=== PATIENT | female | born 1960 | race Caucasian/White ===

== ENCOUNTER 2017-05-27 17:59 | Emergency (ER) | payer OTHER ==
[~2017-05-27] VITALS: Ht 162.6 cm; Wt 48.5 kg
[~2017-05-27 17:59] MED LIST: AMOCLA875 PO; ASPI325 PO; Amoxicillin500 MG PO; BENTYL10 MG PO; BUDE6HFA INH; Bactrim Ds Tab1 EACH PO; CEFD300 PO; CEPH500 PO; CLIN300 PO; CYCL10; CYCL10 PO; DULO30 PO; DULO60; ESTMET; ESTRADIOL1 MG PO; Estradiol1 MG PO; FENO160 PO; GABA300 PO; HORIZANT600 MG PO; HYDACE5 PO; IBUP800 PO; Inderal40 MG; Inderal40 MG PO; KETO10 PO; LEVFLO500 PO; Lofibra160 MG PO; METCAR500 PO; METCAR750 PO; MULVITMIND PO; Mobic7.5 MG PO; NAPR500; NAPR500 PO; NAPR500EC PO; NAPR500ERA PO; NICO14TP TOP; Naprosyn500 MG PO; Norco 10-325 T1 EACH PO; Norco 5-325 Ta1 EACH PO; Norco 7.5-3251 EACH PO; OMEP20ER PO; ONDA4 PO; OXYACE5T PO; OXYC10ER PO; OXYC10TA19 PO; OXYC1TAB11 PO; OXYC5; Omeprazole Dr 40 Mg; Omeprazole20 M1 PO; PROM25; PROM25 PO; Percocet 10-321 EACH PO; Percocet 5-3251 EACH PO; Prednisone20 MG PO; Prilosec2.5 MG PO; Pyridium200 MG PO; RANI150; RANI150 PO; RXOXYACE PO; RXPHEN200 PO; RXTRAM50 PO; SPIRIVA RESPIMAT4 GM INH; TIZANIDINE HCL4 MG PO; TRAM50 PO; TRIM100 PO; Ultram50 MG PO; Zithromax250 MG PO; Zofran Odt4 MG SL; Zofran4 MG PO; [UNRECOGNIZED DRUG - OTHER] PO
[2017-05-27 19:57] LABS: Source, Urine Clean Catch
[2017-05-27 19:59] LABS: Appearance, Urine Clear (Clear); Blood, Urine 3+ (Neg); Color, Urine Yellow (P-Yellow); Glucose Qualitative, Urine Neg (Neg); Ketones, Urine 1+ (Neg); Leukocyte Esterase, Urine 1+ (Neg); Nitrite, Urine Neg (Neg); Protein, Urine 2+ (Neg); Specific Gravity, Urine 1.025 (1.003-1.022); Urobilinogen, Urine 1+ (Normal)
[2017-05-27 20:07] LABS: Bilirubin, Urine 1+ (Neg)
[2017-05-27 20:08] LABS: Mucus Light (0-Heavy)
[2017-05-27 20:09] LABS: Bacteria Rare /hpf; Calcium Oxalate Crystals Few /hpf; Squamous Epithelial Cells Rare /hpf (Few)
[2017-12-26] MEDS ORDERED: MORP15ER PO (08:39)
[2017-12-28] MEDS ORDERED: Percocet 5-3251 EACH PO (10:48)
[2018-02-18] MEDS ORDERED: Robaxin-750750 MG PO (18:39)
== END 2017-05-27 21:08 | disposition home or self-care (01) ==
LOC: ER 17:59
PROVIDERS: Physician Assistant
DX: R10.9 Unspecified abdominal pain (principal); E78.5 Hyperlipidemia, unspecified; J44.9 Chronic obstructive pulmonary disease, unspecified; F32.9 Major depressive disorder, single episode, unspecified; Z88.1 Allergy status to other antibiotic agents; Z88.8 Allergy status to other drugs, medicaments and biological substances; Z88.5 Allergy status to narcotic agent; Z79.899 Other long term (current) drug therapy; Z79.82 Long term (current) use of aspirin; F17.200 Nicotine dependence, unspecified, uncomplicated; Z87.442 Personal history of urinary calculi
CPT/HCPCS: 81001; 87086; 99283

== ENCOUNTER 2017-07-21 20:46 | Emergency (ER) | payer OTHER ==
[~2017-07-21] VITALS: Ht 160 cm; Wt 47.6 kg
[~2017-07-21 20:46] MED LIST changes: +OXYC5 PO
[2017-07-21] MEDS ORDERED: Levaquin500 MG PO (22:19)
[2017-07-21] MEDS ORDERED: Prednisone50 MG PO (22:19)
== END 2017-07-21 22:28 | disposition home or self-care (01) ==
LOC: ER 20:46
DX: J18.9 Pneumonia, unspecified organism (principal); Z88.1 Allergy status to other antibiotic agents; Z88.8 Allergy status to other drugs, medicaments and biological substances; Z88.5 Allergy status to narcotic agent; Z79.899 Other long term (current) drug therapy; Z79.82 Long term (current) use of aspirin; K21.9 Gastro-esophageal reflux disease without esophagitis; F41.9 Anxiety disorder, unspecified; I10 Essential (primary) hypertension; J44.9 Chronic obstructive pulmonary disease, unspecified; F17.200 Nicotine dependence, unspecified, uncomplicated
CPT/HCPCS: 71046; 94640; 99283

== ENCOUNTER 2017-09-02 23:08 | Emergency (ER) | payer OTHER ==
[~2017-09-02] VITALS: Ht 162.6 cm; Wt 46.7 kg
[~2017-09-02 23:08] MED LIST changes: +Levaquin500 MG PO; +Prednisone50 MG PO
[2017-09-03] MEDS ORDERED: Prednisone20 MG PO (00:41)
[2017-09-03] MEDS ORDERED: KETO10 PO (00:41)
[2017-09-03] MEDS ORDERED: Valium5 MG PO (00:41)
[2017-09-03] MEDS ORDERED: LIDO700A20 TOP (00:41)
== END 2017-09-03 01:13 | disposition home or self-care (01) ==
LOC: ER 23:08
DX: M54.6 Pain in thoracic spine (principal); Z88.1 Allergy status to other antibiotic agents; Z88.8 Allergy status to other drugs, medicaments and biological substances; Z88.5 Allergy status to narcotic agent; Z79.899 Other long term (current) drug therapy; Z79.82 Long term (current) use of aspirin; Z79.52 Long term (current) use of systemic steroids; I10 Essential (primary) hypertension; J44.9 Chronic obstructive pulmonary disease, unspecified; F17.210 Nicotine dependence, cigarettes, uncomplicated
CPT/HCPCS: 71046; 93005; 93010; 96372; 99283; J1885

== ENCOUNTER → 2018-01-06 | Outpatient (CLI) | payer OTHER ==
[~2018-01-06] MED LIST changes: +LIDO700A20 TOP; +MORP15ER PO; -OXYC5 PO; +Valium5 MG PO
== END ==
LOC: LAB 16:20 → LAB SHORT 16:20
DX: N10 Acute pyelonephritis (principal)
CPT/HCPCS: 87086

== ENCOUNTER 2019-01-19 10:50 | Day surgery (SDC) | payer OTHER ==
[~2019-01-19] VITALS: Ht 162.6 cm; Wt 39.4 kg
[~2019-01-19 10:50] MED LIST changes: +Robaxin-750750 MG PO
--- NOTE | 2019-01-19 11:31 | NUR ---
01/19/19 1131 Brandie Bates FIRST TWO IV ATTEMPTS IN RIGHT HAND AND FOREARM INFILTRATED. BOTH BY [facility].RCL. THIRD ATTEMPT IN RIGHT AC WAS SUCCESSFUL AND TOLERATED WELL. BY ORS.DLB.
[2019-01-19] MEDS ORDERED: Zofran8 MG PO (11:36)
== END 2019-01-19 13:33 | disposition home or self-care (01) ==
LOC: ORSCSDS 10:50
PROVIDERS: Internal Medicine Gastroenterology
PROC: 0DB68ZX Excision of Stomach, Via Natural or Artificial Opening Endoscopic, Diagnostic (ICD-10-PCS; principal; 2019-01-19 12:15)
PROC: 0DB98ZX Excision of Duodenum, Via Natural or Artificial Opening Endoscopic, Diagnostic (ICD-10-PCS; principal; 2019-01-19 12:15)
DX: R10.13 Epigastric pain (principal); K31.7 Polyp of stomach and duodenum; R11.2 Nausea with vomiting, unspecified; R63.4 Abnormal weight loss; J44.9 Chronic obstructive pulmonary disease, unspecified; F41.9 Anxiety disorder, unspecified; F17.210 Nicotine dependence, cigarettes, uncomplicated; Z79.899 Other long term (current) drug therapy
CPT/HCPCS: 88305; 88342; J2704; J7120

== ENCOUNTER 2019-02-12 15:08 | Inpatient (IN) | payer OTHER ==
[~2019-02-12] VITALS: Ht 162.6 cm; Wt 42.2 kg
[~2019-02-12 15:08] MED LIST changes: +Zofran8 MG PO
[2019-02-12 15:53] LABS: PCO2 Arterial 58.4 mmHg (35-45); PO2 Arterial 74.2 mmHg (80-100); pH Blood Arterial 7.27 (7.35-7.45)
[2019-02-12 15:55] LABS: BASOPHILS ABSOLUTE AUTO 0.08 K/mm3 (0.00-0.23); BASOPHILS PERCENT AUTO 1 % (0-2); EOSINOPHILS ABSOLUTE AUTO 0.03 K/mm3 (0.00-0.68); EOSINOPHILS PERCENT AUTO 0 % (0-6); IMMATURE GRAN ABSOLUTE AUTO 0.03 K/mm3 (0.00-0.10); IMMATURE GRAN PERCENT AUTO 0 % (0-1); LYMPHOCYTES ABSOLUTE AUTO 2.57 K/mm3 (0.84-5.20); LYMPHOCYTES PERCENT AUTO 20 % (21-46); MONOCYTES ABSOLUTE AUTO 1.36 K/mm3 (0.16-1.47); MONOCYTES PERCENT AUTO 11 % (4-13); Mean Corpuscular HGB 31.2 pg (26.0-34.0); Mean Corpuscular Volume 98 fL (80-100); NEUTROPHILS ABSOLUTE AUTO 8.61 K/mm3 (1.96-9.15); NEUTROPHILS PERCENT AUTO 68 % (41-73); Platelet Count 453 K/mm3 (150-400); RDW Coefficient Variation 12.9 % (11.7-14.2); RDW Standard Deviation 46.5 fL (35.1-46.3); Red Blood Cell Count 5.13 M/mm3 (3.80-5.20); White Blood Cell Count 12.68 K/mm3 (4.00-11.30)
[2019-02-12 16:13] LABS: Alanine Aminotransfer (ALT/SGP 22 U/L (12-78); Albumin, Blood 3.3 g/dL (3.4-5.0); Albumin/Globulin Ratio 0.7 (0.8-1.8); Alk Phos 96 U/L (50-136); Anion Gap 8 mmol/L (6-16); Aspartate Aminotrans (AST/SGOT 26 U/L (12-37); Bilirubin, Total 0.5 mg/dL (0.1-1.0); Blood Urea Nitrogen 24 mg/dL (8-24); Bun/Creatinine Ratio 30.7 (12.0-20.0); CO2, Blood 26 mmol/L (21-32); Calcium, Blood 9.1 mg/dL (8.5-10.1); Chloride, Blood 98 mmol/L (98-108); Creatinine, Blood 0.78 mg/dL (0.40-1.00); Globulin, Blood 4.6 g/dL (2.2-4.0); Glomerular Filtration Rate >60 (60-); Glucose, Blood 118 mg/dL (70-99); Sodium, Blood 132 mmol/L (136-145); Total Protein, Blood 7.9 g/dL (6.4-8.2); Troponin I 0.102 ng/mL (0.000-0.040)
[2019-02-12 16:18] LABS: Free Thyroxine 1.38 ng/dL (0.70-1.60)
[2019-02-12 16:21] LABS: Thyroid Stimulating Hormone 0.601 uIU/mL (0.360-4.800)
[2019-02-12] MEDS ORDERED: GABA300 PO ×2 (16:53)
[2019-02-12] MEDS ORDERED: ALBU90OI INH (16:55)
[2019-02-12] MEDS ORDERED: PANT20 PO (16:55)
[2019-02-12] MEDS ORDERED: OXYC10TA19 PO (16:55)
[2019-02-12] MEDS ORDERED: ALBU3IS INH (16:56)
[2019-02-12] MEDS ORDERED: MELO7.5 PO (16:56)
--- NOTE | 2019-02-12 18:37 | NUR ---
ADMIT PT ARRIVED TO ICU 4 AT 1818. PT ALERT, ON BIPAP, BREATHING EASILY. PT MOVED TO ICU BED. DR. BOSE AT BEDSIDE FOR CONSULT AND GAVE ORDERS TO HOLD LASIX AND METOPROLOL. PT ONLY HAS 22G IV CURRENTLY, HARPREET ESPINOSA ATTEMPTING POWERGLIDE. PT UPDATED ON PLAN OF CARE FOR THE NIGHT. GIVEN CALL LIGHT. WILL REPORT OFF TO TOP TRIMMER.
[2019-02-12 19:00] LABS: PCO2 Arterial 49.3 mmHg (35-45); PO2 Arterial 95.4 mmHg (80-100); pH Blood Arterial 7.34 (7.35-7.45)
[2019-02-12 20:33] LABS: Influenza A Negative (NEGATIVE); Influenza B Negative (NEGATIVE)
--- NOTE | 2019-02-12 22:07 | NUR ---
ASSUMPTION OF CARE: PT ALERT AND ORIENTED AND AWAKE IN ROOM. C/O BACK PAIN 9.5/10. PT ON BIPAP 12/10, FI02 30%. SP02 >90%. SBP STABLE IN LOW 100S. HR IN THE 60S. PT ABLE TO VOID. OFFERING BED SPEARS AT THIS TIME. 22G RAC INFUSING NS 100ML/HR. PG IN RALPH INFUSING WITH HEPARIN AT 13U. FAMILY AT BEDSIDE
[2019-02-13 03:36] LABS: BASOPHILS ABSOLUTE AUTO 0.01 K/mm3 (0.00-0.23); BASOPHILS PERCENT AUTO 0 % (0-2); EOSINOPHILS PERCENT AUTO 0 % (0-6); Hematocrit 36.6 % (33.0-51.0); Hemoglobin 11.8 g/dL (11.5-16.0); Mean Corpuscular HGB 30.6 pg (26.0-34.0); Mean Corpuscular HGB Conc 32.2 g/dL (31.5-36.5); Platelet Count 305 K/mm3 (150-400); RDW Coefficient Variation 12.9 % (11.7-14.2); RDW Standard Deviation 44.6 fL (35.1-46.3); Red Blood Cell Count 3.85 M/mm3 (3.80-5.20); White Blood Cell Count 5.77 K/mm3 (4.00-11.30)
[2019-02-13 03:38] LABS: IMMATURE GRAN ABSOLUTE AUTO 0.01 K/mm3 (0.00-0.10); IMMATURE GRAN PERCENT AUTO 0 % (0-1); LYMPHOCYTES ABSOLUTE AUTO 1.37 K/mm3 (0.84-5.20); LYMPHOCYTES PERCENT AUTO 24 % (21-46); MONOCYTES PERCENT AUTO 2 % (4-13); Mean Corpuscular Volume 95 fL (80-100); NEUTROPHILS ABSOLUTE AUTO 4.28 K/mm3 (1.96-9.15); NEUTROPHILS PERCENT AUTO 74 % (41-73)
[2019-02-13 03:57] LABS: Magnesium, Blood 1.2 mg/dL (1.6-2.4)
[2019-02-13 04:06] LABS: Alanine Aminotransfer (ALT/SGP 12 U/L (12-78); Albumin, Blood 2.1 g/dL (3.4-5.0); Albumin/Globulin Ratio 0.7 (0.8-1.8); Alk Phos 55 U/L (50-136); Anion Gap 7 mmol/L (6-16); Aspartate Aminotrans (AST/SGOT 19 U/L (12-37); Bilirubin, Total 0.2 mg/dL (0.1-1.0); Blood Urea Nitrogen 20 mg/dL (8-24); Bun/Creatinine Ratio 45.2 (12.0-20.0); CO2, Blood 25 mmol/L (21-32); Chloride, Blood 108 mmol/L (98-108); Creatinine, Blood 0.44 mg/dL (0.40-1.00); Globulin, Blood 2.9 g/dL (2.2-4.0); Glomerular Filtration Rate >60 (60-); Glucose, Blood 102 mg/dL (70-99); Potassium, Blood 3.7 mmol/L (3.5-5.5); Sodium, Blood 140 mmol/L (136-145)
[2019-02-13 05:29] LABS: PCO2 Arterial 52.8 mmHg (35-45); PO2 Arterial 85.7 mmHg (80-100); pH Blood Arterial 7.31 (7.35-7.45)
--- NOTE | 2019-02-13 05:39 | NUR ---
SHIFT SUMMARY: PT ALERT AND ORIENTED. FAMILY HAS BEEN AT BEDSIDE ALL SHIFT. LUNG SOUNDS ARE COURSE WITH WHEEZES. ON BIPAP 10/5, FI02 30%, AND SP02 >90%. IS ABLE TO TAKE SHORT BREAKS OFF BIPAP. IN SR, SBP STABLE IN THE 90S-100S, HR IN THE 60S. IS 1 PERSON ASSIST TO BEDSIDE COMMODE. 22G RAC INF WITH NS AT 100MLS/HR. POWERGLIDE TO RALPH INFUSING WITH HEPARIN AT 15U/KG/HR.
[2019-02-13 06:00] LABS: U Amphetamine Screen Not Detected; U Barbituate Screen Not Detected; U Benzodiazapine Screen Not Detected; U Buprenorphine Screen Not Detected; U Cannabinoids Screen Not Detected; U Cocaine Screen Not Detected; U Methadone Screen DETECTED; U Methamphetamine Screen Not Detected; U Opiates Screen DETECTED; U Oxycodone Screen Not Detected; U Phencyclidine Screen Not Detected; U Propoxyphene Screen Not Detected
--- NOTE | 2019-02-13 07:30 | NUR ---
ASSUMED CARE AT 0700. REPORT FROM CHERIE MULLINS. PT RESTING IN BED. RT AT BEDSIDE. BIPAP REMOVED, PLACED ON 4L O2 VIA NC. PT SPEAKING IN FULL SENTANCES. LUNGS COARSE THROUGHOUT c EXPIRATORY WHEEZES. PT P/W/D. PT REPORTS SOB IMPROVED, REPORTS SOB c EXERTION LAST NOC. HEPARIN INFUSING AT 15 UNITS/KG/HR THROUGHOUT POWERGLIDE TO RUE. 22G TO RAC. CALL LIGHT IN REACH. DR GAN IN TO SEE PT TODAY, AWAITING ECHO. WILL CONTINUE TO MONITOR.
--- NOTE | 2019-02-13 09:12 | NUR ---
Echocardiogram completed.
--- NOTE | 2019-02-13 18:10 | NUR ---
SHIFT SUMMARY PT TOLERATED BEING OFF BIPAP ALL SHIFT. O2 AT 2L VIA NC. O2 SATS MID 90'S. LUNGS REMAIN COARSE c EXPIRATORY WHEEZES. PT SPEAKING IN FULL SENTANCES. DENIES CHEST PAIN THIS SHIFT. REPORTS CHRONIC BACK PAIN. EDUCATED PT ON SPACING MEDS FOR BETTER PAIN RELIEF. PROVIDED HEATING PAD FOR COMFORT. PT UP TO BEDSIDE COMMODE c STAND BY ASSIST TODAY. MINIMAL DYSPNEA c EXERTION. VSS. HEPARIN CONTINUES TO INFUSE AT 17 UNITS/KG/HR ORDERED. ECHO COMPLETE TODAY. CALCIUM AND MAGNESIUM REPLACED THIS SHIFT. DIET PROGRESSED TO MECHANICAL SOFT. PT TOLERATED WELL. STATUS CHANGED TO PCU. REPORT TO ONCOMING NURSE.
--- NOTE | 2019-02-13 23:06 | NUR ---
ASSUME CARE ASSUMED CARE OF PATIENT AT ABOUT 1945. PATIENT IN BED, A&O. APPROPRIATE. SATS ABOVE 92% ON 2L NC. LUNG SOUNDS COARSE WITH EXPIRATORY WHEEZES AND CRACKLES AT THE BASES. PATIENT ABLE TO USE BEDSIDE COMMODE WITH MINIMAL ASSISTANCE. HEPARIN GTT CHANGED TO 19 UNITS AND 2000 UNIT BOLUS GIVEN PER RX ORDER. PATIENT COMPLAINED OF BACK PAIN, OXY, MORPHINE AND GABBAPENTIN GIVEN BEFORE BED. PATIENT SLEEPING COMFORTABLY. VSS. WILL CONTINUE TO MONITOR.
[2019-02-14 03:58] LABS: BASOPHILS ABSOLUTE AUTO 0.01 K/mm3 (0.00-0.23); BASOPHILS PERCENT AUTO 0 % (0-2); EOSINOPHILS PERCENT AUTO 0 % (0-6); Hematocrit 33.7 % (33.0-51.0); Hemoglobin 10.8 g/dL (11.5-16.0); IMMATURE GRAN ABSOLUTE AUTO 0.04 K/mm3 (0.00-0.10); IMMATURE GRAN PERCENT AUTO 0 % (0-1); LYMPHOCYTES ABSOLUTE AUTO 1.14 K/mm3 (0.84-5.20); LYMPHOCYTES PERCENT AUTO 10 % (21-46); MONOCYTES ABSOLUTE AUTO 0.45 K/mm3 (0.16-1.47); MONOCYTES PERCENT AUTO 4 % (4-13); Mean Corpuscular Volume 97 fL (80-100); NEUTROPHILS ABSOLUTE AUTO 9.32 K/mm3 (1.96-9.15); NEUTROPHILS PERCENT AUTO 85 % (41-73); Platelet Count 325 K/mm3 (150-400); RDW Standard Deviation 46.6 fL (35.1-46.3); Red Blood Cell Count 3.48 M/mm3 (3.80-5.20); White Blood Cell Count 10.96 K/mm3 (4.00-11.30)
[2019-02-14 04:19] LABS: Anion Gap 3 mmol/L (6-16); Blood Urea Nitrogen 20 mg/dL (8-24); Bun/Creatinine Ratio 40.8 (12.0-20.0); CO2, Blood 30 mmol/L (21-32); Chloride, Blood 106 mmol/L (98-108); Creatinine, Blood 0.49 mg/dL (0.40-1.00); Glomerular Filtration Rate >60 (60-); Glucose, Blood 133 mg/dL (70-99); Magnesium, Blood 1.7 mg/dL (1.6-2.4); Phosphorus, Blood 2.7 mg/dL (2.5-4.9); Potassium, Blood 4.7 mmol/L (3.5-5.5); Sodium, Blood 139 mmol/L (136-145); Troponin I <0.015 ng/mL (0.000-0.040)
[2019-02-14 05:06] LABS: PCO2 Arterial 54.8 mmHg (35-45); PO2 Arterial 100 mmHg (80-100); pH Blood Arterial 7.35 (7.35-7.45)
--- NOTE | 2019-02-14 06:03 | NUR ---
SHIFT SUMMARY PATIENT ON BIPAP WHILE ASLEEP. 12/17 30%. ABG DONE AT 0500, FI02 CHANGED TO 25%. HEPARIN GTT CHANGED TO 20 UNITS/KG/HR. VSS. NO OTHER CHANGES. WILL CONTINUE TO MONITOR UNITL REPORT HANDOFF GIVEN.
--- NOTE | 2019-02-14 07:50 | NUR ---
ASSUMED CARE AT 0700. REPORT FROM ADITHYA MULLINS. PT RESTING IN BED. WAKES c VERBAL STIMULI. PT REPORTS ADEQUATE REST LAST NOC. UP TO BEDSIDE COMMODE c STAND BY ASSISTANCE. PT DENIES SOB OR CP. PT ANXIOUS TO GO HOME. LUNGS IMPROVED, COARSE, DIMINISHED IN BASES. VSS. HEPARIN DRIP STOPPED THIS AM PER CARDIOLOGY. PT C/O CHRONIC LOW BACK PAIN. WILL MEDICATED ORDERED. WILL CONTINUE TO MONITOR.
--- NOTE | 2019-02-14 09:27 | NUR ---
DR REAL AT BEDSIDE FOR ASSESSMENT. PT PCU STATUS. PT TO WEAR BIPAP AT NIGHT AND PRN DURING DAY. O2 REMOVED AT THIS TIME. WILL MONITOR BIOX.
--- NOTE | 2019-02-14 14:20 | NUR ---
SHIFT SUMMARY PT MOVED TO PCU. REPORT TO ROSINA MULLINS. ALL BELONGINGS c PT. PT TITRATED OFF O2 THIS SHIFT. O2 SATS LOW 90'S WHEN PT SLEEPING, MID 90'S WHILE AWAKE. WILL CONTINUE BIPAP DURING NOC AND PRN PER DR REAL. HEPARIN AND IVF D/C'D. ENCOURAGED PO INTAKE. DIETARY INVOLVED. PT UP TO BSC COMMODE MULTIPLE TIMES c STAND BY ASSIST.
--- NOTE | 2019-02-14 15:32 | NUR ---
1445 PT ADMITTED TO PCU-5 VIA W/C. PT IS AMBULATORY IN ROOM ON RA. VS NOTED AND PT ADITHYA PAIN OR SOB AT THIS TIME. LUNGS ARE QUITE DEMINISHED LOWER 1/2 OF LUNG RAMOS BUT PT IS TOLERATING WELL. NO CHEST PAIN AND ONLY MINIMAL LOW BACK PAIN CURRENTLY.
--- NOTE | 2019-02-14 17:19 | NUR ---
PT CONT TO SLEEP AND NOT HAVING ANY DISTRESS OR CHANGE IN STATUS CURRENTLY.
--- NOTE | 2019-02-15 05:09 | NUR ---
informed hospitalist of high bp, not medicated due desire to continue pcp's planned procedures, continued to monitor and observed bp declined on own when no longer using bipap, denied symptoms, will continue to monitor and treat
--- NOTE | 2019-02-15 06:43 | NUR ---
pain controlled with medication, call light in reach, will continue to monitor and treat until share bsr with pt and day staff, family in room for most of shift, saline locked, bipap for majority of shift but removed and stayed above 90 on room air
--- NOTE | 2019-02-15 12:19 | NUR ---
PT'S FAMILY HAS REQUESTED THAT PT IS NOT DISTURBED STS "NO ONE WILL QUIT WAKING HER UP AND SHE HASN'T HAD ANY SLEEP, IT'S HARD TO REST WHEN SHE KEEPS BEING WOKEN UP" PT WITH CALL LIGHT, PCT MADE AWARE THAT PT WISHES TO NOT BE DISTRUBED
--- NOTE | 2019-02-15 18:44 | NUR ---
SHIFT NOTE PT HAS BEEN INDEPENDANT IN ROOM T/O THE DAY, REPORTS SOME SOB TODAY, DOES HAVE MILD USE OF ACCESSORY MUSCLES NOTED. PT A/O X4 ANSWERING QUESTIONS APPROPRIATELY IN FULL SENTENCES. LS CLEAR T/O BUT DECREASED.
[2019-02-16 04:10] LABS: Base Excess Venous 15.3 mmol/L; Bicarbonate Venous 35.6 mmol/L (24.0-30.0); PCO2 Venous 52.5 mmHg (38-42); PO2 Venous 23.8 mmHg (38-42); pH Blood Venous 7.48 (7.34-7.37)
[2019-02-16 04:37] LABS: BASOPHILS ABSOLUTE AUTO 0.01 K/mm3 (0.00-0.23); BASOPHILS PERCENT AUTO 0 % (0-2); EOSINOPHILS PERCENT AUTO 0 % (0-6); Hematocrit 39.5 % (33.0-51.0); Hemoglobin 12.9 g/dL (11.5-16.0); IMMATURE GRAN ABSOLUTE AUTO 0.08 K/mm3 (0.00-0.10); IMMATURE GRAN PERCENT AUTO 1 % (0-1); LYMPHOCYTES ABSOLUTE AUTO 0.77 K/mm3 (0.84-5.20); LYMPHOCYTES PERCENT AUTO 11 % (21-46); MONOCYTES PERCENT AUTO 7 % (4-13); Mean Corpuscular HGB 30.6 pg (26.0-34.0); Mean Corpuscular HGB Conc 32.7 g/dL (31.5-36.5); Mean Corpuscular Volume 94 fL (80-100); NEUTROPHILS ABSOLUTE AUTO 5.62 K/mm3 (1.96-9.15); NEUTROPHILS PERCENT AUTO 81 % (41-73); Platelet Count 372 K/mm3 (150-400); RDW Coefficient Variation 13.1 % (11.7-14.2); RDW Standard Deviation 44.3 fL (35.1-46.3); Red Blood Cell Count 4.22 M/mm3 (3.80-5.20); White Blood Cell Count 6.98 K/mm3 (4.00-11.30)
[2019-02-16 04:55] LABS: Alanine Aminotransfer (ALT/SGP 21 U/L (12-78); Albumin, Blood 3.4 g/dL (3.4-5.0); Albumin/Globulin Ratio 0.9 (0.8-1.8); Alk Phos 67 U/L (50-136); Anion Gap 5 mmol/L (6-16); Aspartate Aminotrans (AST/SGOT 17 U/L (12-37); Bilirubin, Total 0.4 mg/dL (0.1-1.0); Blood Urea Nitrogen 17 mg/dL (8-24); CO2, Blood 36 mmol/L (21-32); Calcium, Blood 9.3 mg/dL (8.5-10.1); Chloride, Blood 97 mmol/L (98-108); Creatinine, Blood 0.39 mg/dL (0.40-1.00); Globulin, Blood 3.9 g/dL (2.2-4.0); Glomerular Filtration Rate >60 (60-); Glucose, Blood 126 mg/dL (70-99); Magnesium, Blood 1.8 mg/dL (1.6-2.4); Phosphorus, Blood 2.8 mg/dL (2.5-4.9); Sodium, Blood 138 mmol/L (136-145); Total Protein, Blood 7.3 g/dL (6.4-8.2)
--- NOTE | 2019-02-16 05:33 | NUR ---
complained of cp, bp has been 160's, no complaint prior to pt being informed that pain medication was intended for relife of cp, checked vs, ekg, minimal change noted in vital signs
--- NOTE | 2019-02-16 06:29 | NUR ---
cp resolved with medication, continuing to monitor, pt wears bipap when encouraged too, back and neck pain remain, sustaining around 92 on roomair, saline locked, no complaint of sob
--- NOTE | 2019-02-16 16:54 | NUR ---
DR TO CALLED ABOUT THRUSH TO MOUTH, NEW ORDERS PLACED
--- NOTE | 2019-02-17 00:59 | NUR ---
PT DEMANDED TYLENOL DURING SLEEP STUDY, TO AVOID CONFRONTATION AND STRESS PROVIDED, PER REQUEST
[2019-02-17 06:42] LABS: BASOPHILS ABSOLUTE AUTO 0.02 K/mm3 (0.00-0.23); BASOPHILS PERCENT AUTO 0 % (0-2); EOSINOPHILS PERCENT AUTO 0 % (0-6); Hematocrit 43.2 % (33.0-51.0); Hemoglobin 13.9 g/dL (11.5-16.0); IMMATURE GRAN ABSOLUTE AUTO 0.08 K/mm3 (0.00-0.10); IMMATURE GRAN PERCENT AUTO 1 % (0-1); LYMPHOCYTES ABSOLUTE AUTO 0.82 K/mm3 (0.84-5.20); LYMPHOCYTES PERCENT AUTO 12 % (21-46); MONOCYTES ABSOLUTE AUTO 0.42 K/mm3 (0.16-1.47); MONOCYTES PERCENT AUTO 6 % (4-13); Mean Corpuscular HGB 30.2 pg (26.0-34.0); Mean Corpuscular HGB Conc 32.2 g/dL (31.5-36.5); Mean Corpuscular Volume 94 fL (80-100); NEUTROPHILS ABSOLUTE AUTO 5.74 K/mm3 (1.96-9.15); NEUTROPHILS PERCENT AUTO 81 % (41-73); Platelet Count 406 K/mm3 (150-400); RDW Coefficient Variation 12.9 % (11.7-14.2); RDW Standard Deviation 44.2 fL (35.1-46.3); White Blood Cell Count 7.08 K/mm3 (4.00-11.30)
--- NOTE | 2019-02-17 06:51 | NUR ---
a+o, able to make needs known, sleep study done but some of the time pt was awake and asking for pain medication, bp lower the previous two nights also bp also lower, call light in reach will continue to monitor and treat until share bsr with pt and day staff
[2019-02-17 06:56] LABS: Anion Gap 4 mmol/L (6-16); Blood Urea Nitrogen 25 mg/dL (8-24); Bun/Creatinine Ratio 56.3 (12.0-20.0); CO2, Blood 34 mmol/L (21-32); Calcium, Blood 9.1 mg/dL (8.5-10.1); Chloride, Blood 101 mmol/L (98-108); Creatinine, Blood 0.44 mg/dL (0.40-1.00); Glomerular Filtration Rate >60 (60-); Glucose, Blood 120 mg/dL (70-99); Potassium, Blood 3.7 mmol/L (3.5-5.5); Sodium, Blood 139 mmol/L (136-145)
[2019-02-17] MEDS ORDERED: ASPI81CH PO (14:49)
[2019-02-17] MEDS ORDERED: ATEN25 PO (14:50)
[2019-02-17] MEDS ORDERED: AMLO5 PO (14:50)
[2019-02-17] MEDS ORDERED: ATOR40TA PO (14:51)
[2019-02-17] MEDS ORDERED: CLOP75 PO (14:52)
[2019-02-17] MEDS ORDERED: CLOT10 SS (14:52)
[2019-02-17] MEDS ORDERED: Culturelle1 CAP PO (14:53)
[2019-02-17] MEDS ORDERED: CEFU500T30 PO (14:54)
[2019-02-17] MEDS ORDERED: Prednisone10 MG PO (14:57)
--- NOTE | 2019-02-17 15:37 | NUR ---
DISCHARGE PRESTON CAME AND SET PT UP WITH TRAVEL O2. PT MEDS WERE FAXED TO [facility] PER PT REQUEST. DISCHARGE INSRUCTIONS GONE OVER WITH PT AND FAMILY, ALL QUESTIONS ANSWERED. BELONGINGS GATHERED AND SENT WITH PT. MIDLINE WAS DISCONTINUED AND CATHETER WAS INTACT, PRESSURE DRESSING APPLIED. PT WAS ESCORTED OU VIA WHEELCHAIR ON 2LNC BY SOLE, PCT AND FAMILY.
== END 2019-02-17 15:43 | disposition home health service (06) | DRG 193 ==
LOC: ER 15:08 → ICUE 17:45 → ICUW 17:45 → ICUE 18:08 → PCU 02-14 14:39
PROVIDERS: Hospitalist; Internal Medicine Critical Care Medicine; Internal Medicine Pulmonary Disease; Physician Assistant; ADMIT Internal Medicine Gastroenterology
PROC: 5A09357 Assistance with Respiratory Ventilation, Less than 24 Consecutive Hours, Continuous Positive Airway Pressure (ICD-10-PCS; principal; 2019-02-12)
DX: J14 Pneumonia due to Hemophilus influenzae (principal); I21.A1 Myocardial infarction type 2; J96.21 Acute and chronic respiratory failure with hypoxia; J44.1 Chronic obstructive pulmonary disease with (acute) exacerbation; E46 Unspecified protein-calorie malnutrition; E87.1 Hypo-osmolality and hyponatremia; J44.0 Chronic obstructive pulmonary disease with (acute) lower respiratory infection; D62 Acute posthemorrhagic anemia; B37.0 Candidal stomatitis; F32.9 Major depressive disorder, single episode, unspecified; G89.4 Chronic pain syndrome; F17.210 Nicotine dependence, cigarettes, uncomplicated; E78.5 Hyperlipidemia, unspecified; E86.0 Dehydration; I86.4 Gastric varices
CPT/HCPCS: 36415; 36600; 71045; 71046; 80048; 80053; 82803; 83605; 83690; 83735; 83880; 84100; 84439; 84443; 84484; 85025; 85379; 85730; 87070; 87077; 87185; 87205; 87804; 90686; 93005; 93010; 93306; 94640; 94660; 94664; 94667; 94760; 94762; 96361; 96365; 96375; 97110; 97116; 97162; 97165; 97535; 98960; 99285-25; 99407; A9270; C1751; G0008; J0610; J0696; J1644; J1650; J1940; J2270; J2920; J2930; J3010; J3475; J7030

== ENCOUNTER 2019-03-02 16:32 | Emergency (ER) | payer OTHER ==
[~2019-03-02] VITALS: Ht 162.6 cm; Wt 35.4 kg
[~2019-03-02 16:32] MED LIST changes: +ALBU3IS INH; +ALBU90OI INH; +AMLO5 PO; +ASPI81CH PO; +ATEN25 PO; +ATOR40TA PO; +CEFU500T30 PO; +CLOP75 PO; +CLOT10 SS; +Culturelle1 CAP PO; +MELO7.5 PO; +PANT20 PO; +Prednisone10 MG PO
[2019-03-02 17:00] LABS: BASOPHILS ABSOLUTE AUTO 0.02 K/mm3 (0.00-0.23); BASOPHILS PERCENT AUTO 0 % (0-2); EOSINOPHILS ABSOLUTE AUTO 0.28 K/mm3 (0.00-0.68); EOSINOPHILS PERCENT AUTO 2 % (0-6); Hematocrit 45.1 % (33.0-51.0); Hemoglobin 14.8 g/dL (11.5-16.0); IMMATURE GRAN ABSOLUTE AUTO 0.08 K/mm3 (0.00-0.10); IMMATURE GRAN PERCENT AUTO 0 % (0-1); LYMPHOCYTES ABSOLUTE AUTO 3.66 K/mm3 (0.84-5.20); LYMPHOCYTES PERCENT AUTO 19 % (21-46); MONOCYTES ABSOLUTE AUTO 1.34 K/mm3 (0.16-1.47); MONOCYTES PERCENT AUTO 7 % (4-13); Mean Corpuscular HGB 30.9 pg (26.0-34.0); Mean Corpuscular HGB Conc 32.8 g/dL (31.5-36.5); Mean Corpuscular Volume 94 fL (80-100); Mean Platelet Volume 8.7 fL (9.1-12.4); NEUTROPHILS ABSOLUTE AUTO 13.47 K/mm3 (1.96-9.15); NEUTROPHILS PERCENT AUTO 72 % (41-73); Platelet Count 391 K/mm3 (150-400); RDW Standard Deviation 45.4 fL (35.1-46.3); Red Blood Cell Count 4.79 M/mm3 (3.80-5.20); White Blood Cell Count 18.85 K/mm3 (4.00-11.30)
[2019-03-02 17:21] LABS: Alanine Aminotransfer (ALT/SGP 26 U/L (12-78); Albumin, Blood 3.4 g/dL (3.4-5.0); Alk Phos 64 U/L (50-136); Anion Gap 4 mmol/L (6-16); Aspartate Aminotrans (AST/SGOT 16 U/L (12-37); Bilirubin, Total 0.4 mg/dL (0.1-1.0); Blood Urea Nitrogen 16 mg/dL (8-24); Bun/Creatinine Ratio 28.3 (12.0-20.0); CO2, Blood 32 mmol/L (21-32); Calcium, Blood 8.8 mg/dL (8.5-10.1); Chloride, Blood 101 mmol/L (98-108); Creatinine, Blood 0.57 mg/dL (0.40-1.00); Globulin, Blood 3.4 g/dL (2.2-4.0); Glomerular Filtration Rate >60 (60-); Glucose, Blood 86 mg/dL (70-99); Potassium, Blood 3.5 mmol/L (3.5-5.5); Sodium, Blood 137 mmol/L (136-145); Total Protein, Blood 6.8 g/dL (6.4-8.2); Troponin I <0.015 ng/mL (0.000-0.040)
[2019-03-02] MEDS ORDERED: Pepcid20 MG PO (18:40)
== END 2019-03-02 19:13 | disposition home or self-care (01) ==
LOC: ER 16:32
PROVIDERS: Physician Assistant
DX: K21.0 Gastro-esophageal reflux disease with esophagitis (principal); J44.9 Chronic obstructive pulmonary disease, unspecified; I11.0 Hypertensive heart disease with heart failure; I50.9 Heart failure, unspecified; F41.9 Anxiety disorder, unspecified; F17.210 Nicotine dependence, cigarettes, uncomplicated; Z79.899 Other long term (current) drug therapy
CPT/HCPCS: 36415; 71046; 80053; 84484; 85025; 93005; 93010; 94640; 99285-25

== ENCOUNTER 2019-03-11 19:31 | Emergency (ER) | payer OTHER ==
[~2019-03-11] VITALS: Ht 162.6 cm; Wt 35.4 kg
[~2019-03-11 19:31] MED LIST changes: +Pepcid20 MG PO
[2019-03-11 19:59] LABS: BASOPHILS PERCENT AUTO 1 % (0-2); EOSINOPHILS ABSOLUTE AUTO 0.22 K/mm3 (0.00-0.68); EOSINOPHILS PERCENT AUTO 1 % (0-6); Hemoglobin 14.5 g/dL (11.5-16.0); IMMATURE GRAN ABSOLUTE AUTO 0.12 K/mm3 (0.00-0.10); IMMATURE GRAN PERCENT AUTO 1 % (0-1); LYMPHOCYTES ABSOLUTE AUTO 3.18 K/mm3 (0.84-5.20); LYMPHOCYTES PERCENT AUTO 18 % (21-46); MONOCYTES ABSOLUTE AUTO 1.19 K/mm3 (0.16-1.47); MONOCYTES PERCENT AUTO 7 % (4-13); Mean Corpuscular HGB 30.3 pg (26.0-34.0); Mean Corpuscular HGB Conc 31.5 g/dL (31.5-36.5); Mean Corpuscular Volume 96 fL (80-100); Mean Platelet Volume 8.7 fL (9.1-12.4); NEUTROPHILS ABSOLUTE AUTO 12.95 K/mm3 (1.96-9.15); NEUTROPHILS PERCENT AUTO 73 % (41-73); Platelet Count 488 K/mm3 (150-400); RDW Coefficient Variation 12.8 % (11.7-14.2); Red Blood Cell Count 4.79 M/mm3 (3.80-5.20); White Blood Cell Count 17.76 K/mm3 (4.00-11.30)
[2019-03-11 20:18] LABS: Alanine Aminotransfer (ALT/SGP 30 U/L (12-78); Albumin, Blood 3.5 g/dL (3.4-5.0); Albumin/Globulin Ratio 0.9 (0.8-1.8); Alk Phos 79 U/L (50-136); Anion Gap 4 mmol/L (6-16); Aspartate Aminotrans (AST/SGOT 23 U/L (12-37); Bilirubin, Total 0.4 mg/dL (0.1-1.0); Blood Urea Nitrogen 30 mg/dL (8-24); Bun/Creatinine Ratio 43.7 (12.0-20.0); CO2, Blood 31 mmol/L (21-32); Calcium, Blood 8.8 mg/dL (8.5-10.1); Chloride, Blood 103 mmol/L (98-108); Creatinine, Blood 0.69 mg/dL (0.40-1.00); Glomerular Filtration Rate >60 (60-); Glucose, Blood 122 mg/dL (70-99); Potassium, Blood 4.5 mmol/L (3.5-5.5); Sodium, Blood 138 mmol/L (136-145); Total Protein, Blood 7.5 g/dL (6.4-8.2)
[2019-03-11 20:49] LABS: Troponin I <0.015 ng/mL (0.000-0.040)
[2019-03-11 21:44] LABS: Source, Urine Clean Catch
[2019-03-11 21:46] LABS: Blood, Urine 2+ (Neg); Glucose Qualitative, Urine Neg (Neg); Ketones, Urine 1+ (Neg); Leukocyte Esterase, Urine 2+ (Neg); Nitrite, Urine Neg (Neg); Protein, Urine 2+ (Neg); Specific Gravity, Urine 1.025 (1.003-1.022); Urobilinogen, Urine 1+ (Normal)
[2019-03-11 21:52] LABS: Appearance, Urine Hazy (Clear); Bilirubin, Urine 1+ (Neg); Color, Urine Amber (P-Yellow)
[2019-03-11 21:54] LABS: Amorphous Light (0-Heavy); Bacteria Few /hpf; Hyaline Casts 50-100 /lpf (0-2); Mucus Light (0-Heavy); Red Blood Cells, Urine Rare /hpf (0-2); Squamous Epithelial Cells Few /hpf (Few)
[2019-03-11] MEDS ORDERED: CEFD300 PO (22:15)
== END 2019-03-11 23:01 | disposition home or self-care (01) ==
LOC: ER 19:31
PROVIDERS: Emergency Medicine
DX: M54.5 Low back pain (principal); G89.29 Other chronic pain; R82.81 Pyuria; Z88.1 Allergy status to other antibiotic agents; Z88.8 Allergy status to other drugs, medicaments and biological substances; Z88.5 Allergy status to narcotic agent; Z79.899 Other long term (current) drug therapy; Z79.82 Long term (current) use of aspirin; Z79.52 Long term (current) use of systemic steroids; K21.9 Gastro-esophageal reflux disease without esophagitis; I10 Essential (primary) hypertension; J44.9 Chronic obstructive pulmonary disease, unspecified; F41.9 Anxiety disorder, unspecified; F17.200 Nicotine dependence, unspecified, uncomplicated
CPT/HCPCS: 36415; 71046; 80053; 81001; 84484; 85025; 87086; 93005; 93010; 96365; 96375; 99284-25; J0696; J1170

== ENCOUNTER 2019-12-23 17:19 | Inpatient (IN) | payer MEDICARE, OTHER ==
[~2019-12-23] VITALS: Ht 157.5 cm; Wt 36.9 kg
[~2019-12-23 17:19] MED LIST changes: +COMPAZINE10 MG PO
[2019-12-23 17:51] LABS: PCO2 Arterial 59.7 mmHg (35-45); PO2 Arterial 135 mmHg (80-100)
[2019-12-23 18:12] LABS: BASOPHILS ABSOLUTE AUTO 0.07 K/mm3 (0.00-0.23); BASOPHILS PERCENT AUTO 1 % (0-2); EOSINOPHILS ABSOLUTE AUTO 0.15 K/mm3 (0.00-0.68); EOSINOPHILS PERCENT AUTO 2 % (0-6); Hematocrit 42.7 % (33.0-51.0); Hemoglobin 12.9 g/dL (11.5-16.0); IMMATURE GRAN ABSOLUTE AUTO 0.05 K/mm3 (0.00-0.10); IMMATURE GRAN PERCENT AUTO 1 % (0-1); LYMPHOCYTES ABSOLUTE AUTO 4.79 K/mm3 (0.84-5.20); LYMPHOCYTES PERCENT AUTO 52 % (21-46); MONOCYTES PERCENT AUTO 7 % (4-13); Mean Corpuscular HGB Conc 30.2 g/dL (31.5-36.5); Mean Corpuscular Volume 99 fL (80-100); Mean Platelet Volume 9.2 fL (9.1-12.4); NEUTROPHILS ABSOLUTE AUTO 3.61 K/mm3 (1.96-9.15); NEUTROPHILS PERCENT AUTO 39 % (41-73); Platelet Count 342 K/mm3 (150-400); RDW Coefficient Variation 12.1 % (11.7-14.2); RDW Standard Deviation 44.4 fL (35.1-46.3); White Blood Cell Count 9.27 K/mm3 (4.00-11.30)
[2019-12-23 18:29] LABS: Alanine Aminotransfer (ALT/SGP 31 U/L (12-78); Albumin, Blood 3.3 g/dL (3.4-5.0); Alk Phos 54 U/L (50-136); Anion Gap 12 mmol/L (6-16); Aspartate Aminotrans (AST/SGOT 59 U/L (12-37); Bilirubin, Total 0.4 mg/dL (0.1-1.0); Blood Urea Nitrogen 17 mg/dL (8-24); Bun/Creatinine Ratio 26.1 (12.0-20.0); CO2, Blood 22 mmol/L (21-32); CPK Creatine Kinase 157 U/L (26-193); Calcium, Blood 8.7 mg/dL (8.5-10.1); Chloride, Blood 108 mmol/L (98-108); Creatine Kinase MB 4.4 ng/mL (0.0-3.6); Creatine Kinase MB Index 2.8 (0.0-4.0); Creatinine, Blood 0.65 mg/dL (0.40-1.00); Globulin, Blood 3.2 g/dL (2.2-4.0); Glomerular Filtration Rate >60 (60-); Glucose, Blood 102 mg/dL (70-99); Potassium, Blood 4.2 mmol/L (3.5-5.5); Sodium, Blood 142 mmol/L (136-145); Total Protein, Blood 6.5 g/dL (6.4-8.2)
[2019-12-23 18:35] LABS: International Normalized Ratio 1.05; Prothrombin Time Results 11.2 Sec (9.7-11.5)
[2019-12-23] MEDS ORDERED: FLUT.05NI (18:58)
[2019-12-23 20:15] LABS: Source, Urine Catheter
[2019-12-23 20:19] LABS: Appearance, Urine Clear (Clear); Bilirubin, Urine Neg (Neg); Blood, Urine 5+ (Neg); Color, Urine Yellow (P-Yellow); Glucose Qualitative, Urine Neg (Neg); Ketones, Urine Neg (Neg); Leukocyte Esterase, Urine Neg (Neg); Nitrite, Urine Neg (Neg); Protein, Urine 3+ (Neg); Specific Gravity, Urine 1.025 (1.003-1.022); Urobilinogen, Urine NORM (Normal)
[2019-12-23 20:27] LABS: Bacteria Few /hpf; Granular Casts 0-2 /lpf (0); Squamous Epithelial Cells Few /hpf (Few)
[2019-12-23 21:29] LABS: PCO2 Arterial 51.5 mmHg (35-45); PO2 Arterial 78.2 mmHg (80-100); pH Blood Arterial 7.29 (7.35-7.45)
--- NOTE | 2019-12-24 01:55 | NUR ---
CARE ASSUMED 2104 PT ARRIVED FROM ED VIA GURNEY ACCOMPANIED BY ED RN'S. PT INTUBATED AND SEDATED. PROPOFOL AT 45 MCG'S (INFUSING IN 18 G RIGHT AC) AND NS @ RATE OF 100 ML/HR (20 G LEFT AC). AC 24/300/5/30%, SPO2 97-100%. TEMP JANSEN IN PLACE, DARK YELLOW CLOUDY URINE, TEMP OF 97.4. OG TUBE IN PLACE WITH GREEN AND MYRICK COLORED DISCHARGE. PT COOL TO TOUCH, BILATERAL KNEES MOTTLED. PT OPEN EYES DURING ORAL CARE AND GRIMACES FREQUENTLY, TREATED PER EMAR. PT UNABLE TO FOLLOW COMMANDS. PULSES STRONG. DR. BOSE IN TO SEE PT ALONG WTIH PTS [id number]. VENT SETTINGS CHANGED TO AC 26/350/08/04. DR. BOSE ASKED FOR NS FLUIDS TO BE CHANGED TO RATE OF 75 ML/HR. PTS TEMP INCREASING SLOWLY, BLANKETS REMOVED, ROOM TEMP DECREASED, AND FAN ON PTS FACE.
[2019-12-24 03:14] LABS: Adenovirus Not Detected (NOT DETECT); Bordetella pertussis Not Detected (NOT DETECT); Chlamydophila pneumoniae Not Detected (NOT DETECT); Coronavirus 229E Not Detected (NOT DETECT); Coronavirus HKU1 Not Detected (NOT DETECT); Coronavirus NL63 Not Detected (NOT DETECT); Coronavirus OC43 Not Detected (NOT DETECT); Human Metapneumovirus Not Detected (NOT DETECT); Human Rhinovirus/Enterovirus Not Detected (NOT DETECT); Influenza A/2009-H1 Not Detected (NOT DETECT); Influenza A/H1 Not Detected (NOT DETECT); Influenza A/H3 Not Detected (NOT DETECT); Influenza B Not Detected (NOT DETECT); Mycoplasma pneumoniae Not Detected (NOT DETECT); Parainfluenza Virus 1 Not Detected (NOT DETECT); Parainfluenza Virus 2 Not Detected (NOT DETECT); Parainfluenza Virus 3 Not Detected (NOT DETECT); Parainfluenza Virus 4 Not Detected (NOT DETECT); Respiratory Syncytial Virus Not Detected (NOT DETECT); SARS-Cov-2 (COVID-19), BioFire Not Detected (NOT DETECT)
[2019-12-24 05:02] LABS: BASOPHILS ABSOLUTE AUTO 0.02 K/mm3 (0.00-0.23); BASOPHILS PERCENT AUTO 0 % (0-2); EOSINOPHILS ABSOLUTE AUTO 0.01 K/mm3 (0.00-0.68); EOSINOPHILS PERCENT AUTO 0 % (0-6); Hematocrit 40.9 % (33.0-51.0); Hemoglobin 13.3 g/dL (11.5-16.0); IMMATURE GRAN ABSOLUTE AUTO 0.06 K/mm3 (0.00-0.10); IMMATURE GRAN PERCENT AUTO 1 % (0-1); LYMPHOCYTES ABSOLUTE AUTO 1.52 K/mm3 (0.84-5.20); LYMPHOCYTES PERCENT AUTO 12 % (21-46); MONOCYTES ABSOLUTE AUTO 0.13 K/mm3 (0.16-1.47); MONOCYTES PERCENT AUTO 1 % (4-13); Mean Corpuscular HGB 30.4 pg (26.0-34.0); Mean Corpuscular HGB Conc 32.5 g/dL (31.5-36.5); Mean Platelet Volume 9.2 fL (9.1-12.4); NEUTROPHILS ABSOLUTE AUTO 11.14 K/mm3 (1.96-9.15); NEUTROPHILS PERCENT AUTO 86 % (41-73); Platelet Count 338 K/mm3 (150-400); RDW Coefficient Variation 12.1 % (11.7-14.2); Red Blood Cell Count 4.37 M/mm3 (3.80-5.20); White Blood Cell Count 12.88 K/mm3 (4.00-11.30)
[2019-12-24 05:03] LABS: Mean Corpuscular Volume 94 fL (80-100)
[2019-12-24 05:09] LABS: PCO2 Arterial 34.5 mmHg (35-45); PO2 Arterial 67.3 mmHg (80-100); pH Blood Arterial 7.43 (7.35-7.45)
[2019-12-24 05:21] LABS: Alanine Aminotransfer (ALT/SGP 40 U/L (12-78); Albumin, Blood 3.5 g/dL (3.4-5.0); Albumin/Globulin Ratio 1.3 (0.8-1.8); Alk Phos 48 U/L (50-136); Anion Gap 9 mmol/L (6-16); Aspartate Aminotrans (AST/SGOT 67 U/L (12-37); Bilirubin, Total 0.5 mg/dL (0.1-1.0); Blood Urea Nitrogen 21 mg/dL (8-24); Bun/Creatinine Ratio 47.7 (12.0-20.0); CO2, Blood 22 mmol/L (21-32); Calcium, Blood 8.5 mg/dL (8.5-10.1); Chloride, Blood 107 mmol/L (98-108); Creatinine, Blood 0.44 mg/dL (0.40-1.00); Globulin, Blood 2.7 g/dL (2.2-4.0); Glomerular Filtration Rate >60 (60-); Glucose, Blood 116 mg/dL (70-99); Magnesium, Blood 1.7 mg/dL (1.6-2.4); Potassium, Blood 3.6 mmol/L (3.5-5.5); Sodium, Blood 138 mmol/L (136-145); Total Protein, Blood 6.2 g/dL (6.4-8.2)
--- NOTE | 2019-12-24 07:11 | NUR ---
SHIFT SUMMARY PT CONTINUES TO BE INTUBATED AND SEDATED. PROPOFOL AT 45 MCG/KG/MIN. VENT SETTINGS UNCHANGED. PT HAD EPISODE OF HYPERTENSION DURING 0400 ASSESSMENT AND DURING CHEST XRAY. PT GIVEN PROPANOLOL EARLY TO MANAGE ALONG WITH FENTANYL, SEE EMAR. GOOD EFFECT WITH BP AFTER MEDICATED WITH PAIN MEDICATION AND PROPANOLOL, SEE FLWO SHEET. PT RESPONDS TO VERBAL STIMULI, ABLE TO TRACK WITH HER EYES, AND FOLLOW COMMANDS. REORIENTED TO PLACE AND EVENT. PT DEINES PN. PT ABLE TO MOVE ARISTEO EXTREMS. PT SENSITIVE TO ANY NOXIOUS STIMULI. PTS TEMP REMAINS ELEVATION, 99.1, FAN REMAINS ON PT. WILL REPORT TO ONCOMING SHIFT. VSS. SPO REMAINED > 97%. LLL WITH RUB AND WHEEZES NOTED.
--- NOTE | 2019-12-24 08:28 | NUR ---
ASSUMED CARE OF PT AT 0700. REPORT FROM FIFI/GRADY MULLINS. PT INTUBATED AND SEDATED. VENT SETTINGS AC 26/350/5/25%. PROPOFOL GTT AT 55 MCG/KG/MIN. PT VERY SENSITIVE TO ANY NOXIOUS STIMULI. PT PULLS ON RESTRAINTS, COUGHS, GAGS ON TUBE. DIFFICULT TO REDIRECT. MEDICATED c ATIVAN AND FENTANYL PER EMAR. OGT TO LIS, GREEN BILE OUT. PT CACHETIC. ABD FLAT, NON TENDER. HYPOACTIVE BT. JANSEN IN PLACE, PATENT, DRAINING CLOUDY YELLOW URINE TO GRAVITY. HTN NOTED. DAUGHTER, CHRIS AT BEDSIDE. PALLATIVE CARE NOTIFIED. DAUGHTER REQUESTING TO ADDRESS CODE STATUS AND EXPLORE HOSPICE. WILL CONTINUE TO MONITOR.
--- NOTE | 2019-12-24 09:06 | NUR ---
Initial palliative care consul: Sheila is a 59 year old pt with a history of severd COPD, HTN, IBS, DE, anxiety. She was admitted with respiratory failure on 12/23/19. She is currently in ICU 6 and is intubated. She has a history of multiple COPD exacerbations. Requested by SECRETARY OFFICE CLERK to come visit with pt's family. Dtr Romelia is at the bedside. Romelia reports that she and her siblings (Tri & Paddy and sister in law Sarah) all agree that they would like to focus on comfort for their mom. Romelia states that she is her mom's caregiver and that she has watched her mom suffer and decline significantly since her pneumonia hospitalization in 2018. Romelia reports her mom's quality of life is poor. Her appetite is poor and she vomits frequently. She has lost weight and at times incontinent. She is unable to move around due to her chronic pain and SOB. She spends a large amount of time in her bed which is uncomfortable for her. Romelia reports her mom has mentioned in the past that she doesn't want to be on any fdc life support. Discussed options of continued treatments, code status and hospice and comfort care. Romelia states she and her siblings goal is to get Sheila home with hospice services so she can be comfortable and be home with her family. Romelia would like to change Sheila's code status to DNR but is ok with leaving her on the vent for a short time. Romelia does not want her to be re-intubated. Romelia is open to beginning comfort care in the hospital setting. Romelia would like a hospice referral placed for her mom, she doesn't have a preference of which hospice agency, and is open to go with whoever can see her the soonest for an intake. PPS 40% KPS 30% Multiple COPD exacerbations, wt loss, symptoms at rest with a large amount of time spent in bed. Sheila would be appropriate for hospice services based on her lung disease. Spoke with Dr. Sheppard, updated her on conversation with Romelia POC requested. Orders obtained for DNR. Dr. Sheppard will evaluate Sheila this morning. Nursing updated. Romelia provided with a hospice brochure and information on comfort care.
--- NOTE | 2019-12-24 17:38 | NUR ---
SHIFT SUMMARY PT REMAINS INTUBATED AND SEDATED. VENT SETTINGS AC 26/350/5/25%, PROPOFOL GTT AT 55 MCG/KG/MIN. PT RESPONSIVE TO NOXIOUS STIMULI. COUGH, GAG REFLEX. MAEW. LUNGS COARSE THROUGHOUT. TUBE FEEDS STARTED THIS SHIFT, VHP AT 10 ML/HR, GOAL 20 ML/HR, c 30 ML FLUSHES q4 HR. RESIDUALS 70 ML THIS AFTERNOON. 350 ML URINARY OUTPUT THIS SHIFT. 1 BM. CODE STATUS CHANGED TO DNR THIS SHIFT. PLAN FOR POSSIBLE EXTUBATION AND MOVE TO COMFORT CARE TOMORROW. HTN NOTED THIS SHIFT. HOME MEDS ORDERED, LABETALOL X 1 GIVEN c ADEQUATE RESULTS. WILL CONTINUE TO MONITOR UNTIL REPORT TO ONCOMING NURSE.
--- NOTE | 2019-12-24 19:24 | NUR ---
ASSUMED PT CARE. PT ET TO VENT, AC 26, TV 350, FIO2 25%, PEEP 5. LUNG SOUNDS COARSE WITH SOME CRACKLES TO RIGHT BASE. PT. SEDATED ON PROPOFOL @55 MCG. CALM AND SEDATED AT THIS TIME. TUBE FEEDING INFUSING AT 10CC/HR. BOWEL TONES ACTIVE. JANSEN CATH INTACT DRAINING CLEAR YELLOW URINE. PT'S DAUGHTER CHRIS AT BEDSIDE DURING SHIFT REPORT.
--- NOTE | 2019-12-24 20:00 | NUR ---
PT VERY RESTLESS AND TENSE AFTER REPOSITIONING. PT GIVEN ATIVAN FOR ANXIETY AND COMFORT.
[2019-12-25 04:40] LABS: Anion Gap 8 mmol/L (6-16); Blood Urea Nitrogen 21 mg/dL (8-24); Bun/Creatinine Ratio 47.4 (12.0-20.0); CO2, Blood 25 mmol/L (21-32); Calcium, Blood 8.5 mg/dL (8.5-10.1); Chloride, Blood 104 mmol/L (98-108); Creatinine, Blood 0.44 mg/dL (0.40-1.00); Glomerular Filtration Rate >60 (60-); Glucose, Blood 140 mg/dL (70-99); Magnesium, Blood 1.7 mg/dL (1.6-2.4); Phosphorus, Blood 2.9 mg/dL (2.5-4.9); Potassium, Blood 3.7 mmol/L (3.5-5.5); Sodium, Blood 137 mmol/L (136-145)
--- NOTE | 2019-12-25 05:46 | NUR ---
SHIFT SUMMARY PT REMAINS ON VENT AC 26, TV 350, PEEP 5, FIO2 25%. THIS AM WEANING TRIAL SUCCESSFUL. PT. TOLERATED BUT DID HAVE SOME AGITATION. ATIVAN GIVEN WITH GOOD EFFECT. LUNG SOUNDS COARSE, SCANT AMOUNTS OF SPUTUM NOTED. TUBE FEEDING REMAINS AT 10CC/HR. RESIDUAL 75CC. PROPOFOL REMAINS AT 55, WHEN PROPOFOL DECREASED TO 40 FOR WEANING, PT. BECAME RESTLESS AND AGITATED. 150CC URINE FROM JANSEN LAST NIGHT. UPDATED PT FAMILY PETTY ON PT. CONDITION AND WEANING TRIALS.
--- NOTE | 2019-12-25 11:18 | NUR ---
PT SEDATE ON PROPOFOL AND CALM CURRENTLY. NO EVIDENCE OF PAIN AND MOVED TO NEW POSITION W/O DISTRESS. TF REMAINS STOPPED AND PT CONTINUES WITH SOME RESIDUAL THAT WAS NOT FULLY MEASURES BUT GREATER THAN 80. PT DAUGHTER IN ROOM AND INQUIRING RE PT STATUS.
--- NOTE | 2019-12-25 13:13 | NUR ---
PT EXTUBATED 1255, AND PLACE ON 3L NC. PT TOLERATED WELL AND CALM ON PRECEDEX GTT BUT IS HAVING SOME MILD CONFUSION. WILL FOLLOW. PT DAUGHTER IS IN TO VISIT AND WILL PT. NO CURRENT RESP. DISTRESS. SATS 100 ON 3L.
--- NOTE | 2019-12-25 16:38 | NUR ---
Spiritual care note: I met with pt and dtr at bedside. It was clear they care deeply for each other. Non-mandaeism. Complimented dtr on her devotion for pt. Affirmed obvious love. They were pleasant, but did not wish for conversation. Advised I would remain available.
--- NOTE | 2019-12-25 16:55 | NUR ---
FAMILY HAS BEEN IN THE ROOM AND COMFORTING PT. PT C/O MOD PAIN AND FREDDY MEDICATE. VSS AND PT REMAINS ON 3L. PT IS VERY SL DISORIENTED BUT IS PLEASANT, COOP. AND AT TIME APPROPRIATE COMMENTS.
--- NOTE | 2019-12-25 18:25 | NUR ---
PT IS SLEEPING AND RESTING CALMYL WITH EYES CLOSED. PT DID VERALIZE THAT SHE WAS "SCARED". PT WAS REASSURED AND PARTIAL LIGHTS ON, CURTIAN OPEN, AND DOOR OPEN TO HEAR PT NEEDS. VS HAVE BEEN STABLE AND I/O NOTED. PAIN IS CURRENTLY UNDER CONTROL.
--- NOTE | 2019-12-25 19:47 | NUR ---
ASSUMED CARE RECIEVED REPORT FROM HARPREET ALMAGUER. PT IS ALERT AND ORIENTED TO SELF, SURROUNDINGS, SITUATION, AND YEAR. SHE UNDERSTANDS SHE HAD ISSUES WITH BREATHING, BUT IS CONFUSED AFTER HEARING THAT SHE WAS ON THE VENTILATOR. SHE IS ALSO STRUGGLING TO UNDERSTAND OTHER CONCEPTS, LIKE WHAT A JANSEN CATHETER IS, AND WHAT SCDs ARE. SHE IS "DAZED". SHE IS IN SINUS RHYTHM WITH STABLE VITALS, SHE IS ON 3 L NC, AND IS COMPLAINING OF PAIN IN HER BACK. SHE DENIES CHEST PAIN, NAUSEA, AND SOB AT REST. SHE HAS A PATENT JANSEN CATHETER DRAINING LIGHT YELLOW URINE, AND SHE HAS BILATERAL SCDs AROUND HER CALVES. BED LOW AND LOCKED. BED ALARM IS ON. CALL LIGHT IS WITHIN REACH.
[2019-12-26 03:56] LABS: Magnesium, Blood 1.9 mg/dL (1.6-2.4); Phosphorus, Blood 2.8 mg/dL (2.5-4.9)
--- NOTE | 2019-12-26 05:00 | NUR ---
SHIFT SUMMARY PT HAS BEEN IN AND OUT OF SLEEP T/O NIGHT. SHE REMAINS ALERT AND ORIENTED TO SELF, SITUATION, SURROUNDINGS, AND YEAR. SHE IS FORGETFUL, EASILY CONFUSED, AND APPOLOGIZES CONSTANTLY. SHE HAS STABLE VITALS, ON 3 L NC SAT'ing HIGH 90s. SHE HAS CHRONIC LOWER BACK PAIN, AND HAS BEEN REQUIRING PAIN MEDICATION. SHE FAILED HER SWALLOW EVAL YESTERDAY, SO JERRY BEEN MEDICATING WITH IV FENTANYL, WHICH WORKS REALLY WELL. NO ATIVAN NEEDED OVER NIGHT. PT HAS GREAT URINE OUTPUT. PT WOKRE UP FAIRLY NAUSEOUS AROUND 0430, I GAVE HER ZOFRAN AND PLACED A COOL WET TOWELL ON HER FOREHEAD, AND THE PT SAID SHE FELT BETTER BY AROUND 0500. PT IS WANTING TO GO HOME TOMORROW. BED IS LOW AND LOCKED. CALL LIGHT WITHIN REACH (SHE USED THE CALL LIGHT FOR THE FIRST TIME, AROUND 0430 TO LET ME KNOW SHE WAS NAUSEOUS).
--- NOTE | 2019-12-26 07:40 | NUR ---
Monicavd report from Verena MULLINS. Patient in bed with HOB at 30 degreews and on left side. She awakened easily to verbal stimuli and was able to communicate her needs. She was on 2L O2 via NC at 100% sats and reduced to RA and remains at 100%. She is able to TRAORE but weak. She has 16Fr Temp patricio in place and draining to gravity yellow urine with temp of 98.4 She has bilateral AC IV's, 18ga right and 20ga left, dressings intact and sites WNL's and RAC infusing NS TKO. VSS, See EMR.
--- NOTE | 2019-12-26 09:25 | NUR ---
Patient daughters were here for short period and were able to talk with Laureen RN care management and [facility]. She sounds like home by 1600 today. VSS, See EMR. She has been getting oral swabs and oral care. He has been having many confusing moments. Speech therapy here and will eval prior to discharge.
--- NOTE | 2019-12-26 11:41 | NUR ---
Patient passed swallow eval and gave meds and tolerated well. Repositioned in bed. VSS, See EMR. She will be going home on Hospice at 1600. She is rresting with Pastoral care at bedside.
--- NOTE | 2019-12-26 13:50 | NUR ---
Tracey from [facility] was by again and brought all the discharge paperwork and trnsportation docmentations. She is sitting up in bed eating lunch with family at [facility]. VSS, See EMR
--- NOTE | 2019-12-26 16:38 | NUR ---
Patient discharged home on Hospice and was transported by [facility]. Left patricio in by [facility] request and pulled intact bilateral AC IV's, Assisted with minimal cloths and went home in gown. She remains on RA and ambulated to wheelchair with assist.
== END 2019-12-26 16:30 | disposition hospice, home (50) | DRG 208 ==
LOC: ER 17:19 → ICUE 17:20 → ICUW 17:20 → ICUE 21:05
PROVIDERS: Emergency Medicine; Internal Medicine Critical Care Medicine; ADMIT Internal Medicine
PROC: 5A1945Z Respiratory Ventilation, 24-96 Consecutive Hours (ICD-10-PCS; principal; 2019-12-23)
DX: J96.01 Acute respiratory failure with hypoxia (principal); J44.1 Chronic obstructive pulmonary disease with (acute) exacerbation; E87.2 Acidosis; R64 Cachexia; Z68.1 Body mass index [BMI] 19.9 or less, adult; Z20.828 Contact with and (suspected) exposure to other viral communicable diseases; K21.9 Gastro-esophageal reflux disease without esophagitis; K58.0 Irritable bowel syndrome with diarrhea; F17.210 Nicotine dependence, cigarettes, uncomplicated; I10 Essential (primary) hypertension; E78.5 Hyperlipidemia, unspecified; Z79.891 Long term (current) use of opiate analgesic; G89.4 Chronic pain syndrome; Z66 Do not resuscitate
CPT/HCPCS: 0202U; 31720; 36415; 36600; 51702; 71045; 80048; 80053; 81001; 82550; 82553; 82803; 82947; 83605; 83690; 83735; 84100; 84145; 84484; 85025; 85610; 87040; 87070; 87205; 92610; 93005; 93010; 94002; 94003; 94640; 96361-59; 96365-59; 96375-59; 99291-25; C9113; J0696; J1650; J2060; J2405; J2543; J2550; J2704; J2930; J3010; J3370; J7030; U0003